=== PATIENT | male | born 1970 | race African-American/Black ===

== ENCOUNTER 2017-09-04 17:52 | Inpatient (IN) | payer OTHER ==
[~2017-09-04] VITALS: Ht 182.9 cm; Wt 91.2 kg
--- NOTE | 2017-09-04 17:52 | NUR ---
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 PLACED ON MONITOR. AWAITING MD ORDER
--- NOTE | 2017-09-04 18:20 | NUR ---
RT WRIST #18 IV ACCESS. BLOOD SAMPLE COLLECTED SENT TO LAB
[2017-09-04 18:38] LABS: CARBON DIOXIDE 29 mmol/L (21-32); CHLORIDE 105 mmol/L (98-107); CREATININE 1.3 mg/dL (0.6-1.3); GLUCOSE 141 mg/dL (74-106); SODIUM SERUM 140 mmol/L (136-145); UREA NITROGEN, BLOOD 25 mg/dL (7-18)
[2017-09-04 18:40] LABS: INR 0.91 (0.85-1.15)
[2017-09-04 18:47] LABS: BASOPHILS # (AUTO) 0.3 /CMM (0.0-0.2); BASOPHILS % (AUTO) 3.8 % (0.0-2.0); EOSINOPHILS % (AUTO) 2.1 % (0.0-6.0); HEMATOCRIT 40 % (39-51); HEMOGLOBIN 13.4 g/dL (13.5-17.5); LYMPHOCYTES # (AUTO) 2.1 /CMM (0.8-4.8); LYMPHOCYTES % (AUTO) 23.3 % (20.0-44.0); MEAN CORPUSCULAR HGB CONC 33 g/dl (31.0-36.0); MEAN CORPUSCULAR VOLUME 81 fL (80-96); MONOCYTES # (AUTO) 0.7 /CMM (0.1-1.30); MONOCYTES % (AUTO) 7.6 % (2.0-12.0); NEUTROPHILS # (AUTO) 5.7 /CMM (1.8-8.9); NEUTROPHILS % (AUTO) 63.2 % (43.0-81.0); PLATELET COUNT (AUTO) 266 /CMM (150-450); RDW COEFFICIENT OF VARIATION 13.7 (11.5-15.0); RED BLOOD CELL COUNT(AUTO) 4.97 MIL/uL (4.5-6.0)
[2017-09-04 19:01] LABS: TROPONIN I < 0.017 ng/mL (0.00-0.056)
--- NOTE | 2017-09-04 19:18 | NUR ---
GAVE REPORT TO LANDY FOR ABDULAZIZ
[2017-09-04] MEDS ORDERED: IV NS 0.9% 250 ML IV ONE (20:20)
[2017-09-04] MEDS ORDERED: IOHEXOL-350 100 ML VIAL IV ONE (20:20)
[2017-09-04] MEDS ORDERED: CT SWABBABLE VALVE TRANS SET 1 EA INFUS.SET MC ONE (20:20)
[2017-09-04] MEDS ORDERED: ASPIRIN 325 MG TABLET PO ONE (20:30)
[2017-09-04] MEDS ORDERED: IV NS 0.9% 1,000 ML BAG IV ONE (20:30)
[2017-09-04] MEDS ORDERED: ASPIRIN 325 MG TABLET ONE (21:21)
--- NOTE | 2017-09-04 21:50 | NUR ---
CALLED [employer] CART PUSHER WAS PAGED
--- NOTE | 2017-09-04 21:57 | NUR ---
REPORT GIVEN TO ITZ LERMA FOR ABDULAZIZ
--- NOTE | 2017-09-04 22:24 | NUR ---
TRANSPORTED PT TO TELE BED WITHOUT INCIDENT
[2017-09-04 22:25] VITALS: BP 134/74
--- NOTE | 2017-09-04 22:25 | NUR ---
ROTOR PILOTGENERAL CONTRACTOR NOTE PT ARRIVED VIA WHEELCHAIR IN STABLE CONDITION ACCOMPANIED BY ER STAFF. PT ABLE TO AMBULATE FROM WHEELCHAIR TO BED WITH NO DIFFICULTY. PT IS A/O X4, RESPIRATIONS ARE EVEN AND UNLABORED, NOT IN ANY ACUTE DISTRESS NOTED. PUPILS ARE REACTIVE TO LIGHT. BILATERAL HAND PHYSICIAN CREDENTIALING SPECIALIST ARE STRONG AND EQUAL. TELE LEADS APPLIED, NOTED TO BE SR 70 AT THIS TIME. DENIES SOB AT THIS TIME. PT STATED HE HAS SLIGHT CHEST PAIN TO STERNUM THAT IS DULL AND PERSISTENT, DOES NOT RADIATE. OFFERED PAIN MEDICATION, PT STATED "I AM FINE FOR NOW. I DONT NEED IT." PT MADE AWARE OF OPTIONS OF MEDICATIONS, PT VERBALIZED UNDERSTANDING. ABDOMEN IS SOFT AND NONDISTENDED. DENIES ANY BLADDER DISCOMFORT. NO SKIN ISSUES NOTED. IV TO RIGHT WRIST INTACT, NO INFILTRATION NOTED. DRESSING KEPT CLEAN AND DRY. SAFETY MEASURES ARE IN PLACE. BED IS IN ITS LOW AND LOCKED POSITION. INSTRUCTED PT TO USE CALL LIGHT WHEN ASSISTANCE IS NEEDED, CALL LIGHT IS LEFT WITHIN REACH. WILL CONTINUE TO MONITOR THROUGHOUT SHIFT.
[2017-09-04 22:30] VITALS: BP 134/74
[2017-09-04] MEDS ORDERED: MORPHINE SULFATE INJ 2 MG/ML DISP.SYRIN IV PRN (22:30)
[2017-09-04] MEDS ORDERED: MAGNESIUM HYDROXIDE 30 ML UDC PO PRN (22:30)
[2017-09-04] MEDS ORDERED: HYDROCODONE/APAP 5/325MG 1 EACH TABLET PO PRN (22:30)
[2017-09-04] MEDS ORDERED: ACETAMINOPHEN 325 MG TABLET PO PRN (22:30)
[2017-09-04] MEDS ORDERED: ZOLPIDEM TARTRATE 5 MG TABLET PO PRN (22:30)
[2017-09-04] MEDS ORDERED: MAG HYDROX/AL HYDROX/SIMETH 30 ML UDC PO PRN (22:30)
[2017-09-04] MEDS ORDERED: Z GUARD REMEDY 2 OZ OINT TP PRN (22:30)
[2017-09-04] MEDS ORDERED: ONDANSETRON HCL/PF 4 MG/2 ML VIAL IVP PRN (22:30)
[2017-09-04] MEDS ORDERED: ENOXAPARIN SODIUM 40 MG/0.4 ML DISP.SYRIN SQ ONE (23:00)
[2017-09-05 00:11] VITALS: BP 151/84
[2017-09-05 04:37] VITALS: BP 148/78
--- NOTE | 2017-09-05 06:20 | NUR ---
SENIOR INSIGHT MANAGER INTERNATIONAL CLOSING NOTE ALL DUE MEDS GIVEN, NEEDS MET AND RENDERED. ALERT, AWAKE AND RESPONSIVE. RESPIRATIONS ARE EVEN AND UNLABORED, NOT IN ANY ACUTE DISTRESS NOTED. DENIES ANY PAIN, SOB AT THIS TIME. IV SITE INTACT, NO INFILTRATION NOTED. DRESSING KEPT CLEAN AND DRY. SAFETY MEASURES ARE IN PLACE. REMINDED PT TO USE CALL LIGHT WHEN ASSISTANCE IS NEEDED, CALL LIGHT IS LEFT WITHIN REACH. WILL ENDORSE TO NEXT SHIFT FOR CONTINUITY OF CARE.
[2017-09-05 06:49] LABS: BASOPHILS % (AUTO) 0.5 % (0.0-2.0); EOSINOPHILS % (AUTO) 2.8 % (0.0-6.0); HEMATOCRIT 36 % (39-51); HEMOGLOBIN 12.3 g/dL (13.5-17.5); LYMPHOCYTES # (AUTO) 3.7 /CMM (0.8-4.8); LYMPHOCYTES % (AUTO) 43.8 % (20.0-44.0); MEAN CORPUSCULAR HGB CONC 34 g/dl (31.0-36.0); MEAN CORPUSCULAR VOLUME 81 fL (80-96); MONOCYTES # (AUTO) 0.7 /CMM (0.1-1.30); MONOCYTES % (AUTO) 7.7 % (2.0-12.0); NEUTROPHILS # (AUTO) 3.8 /CMM (1.8-8.9); NEUTROPHILS % (AUTO) 45.2 % (43.0-81.0); PLATELET COUNT (AUTO) 246 /CMM (150-450); RDW COEFFICIENT OF VARIATION 14.6 (11.5-15.0); RED BLOOD CELL COUNT(AUTO) 4.43 MIL/uL (4.5-6.0); WHITE BLOOD COUNT (AUTO) 8.4 K/uL (4.3-11.0)
[2017-09-05 07:11] LABS: TROPONIN I < 0.017 ng/mL (0.00-0.056)
[2017-09-05 07:13] LABS: CHOLESTEROL 136 mg/dL (<200); HDL CHOLESTEROL 44 mg/dL (40-60); LDL 76 mg/dL (0-99); TRIGLYCERIDES 73 mg/dL (30-150)
[2017-09-05 07:18] LABS: ALANINE AMINOTRANSFERASE 54 U/L (12-78); ALBUMIN 2.9 g/dL (3.4-5.0); ALKALINE PHOSPHATASE 43 U/L (46-116); ASPARTATE AMINOTRANSFERASE 153 U/L (15-37); BILIRUBIN,TOTAL 0.2 mg/dL (0.2-1.0); CALCIUM, SERUM 8.5 mg/dL (8.5-10.1); CARBON DIOXIDE 27 mmol/L (21-32); CHLORIDE 107 mmol/L (98-107); GLUCOSE 78 mg/dL (74-106); MAGNESIUM 1.8 mg/dL (1.8-2.4); PHOSPHORUS 4.2 mg/dL (2.5-4.9); POTASSIUM 3.6 mmol/L (3.5-5.1); SODIUM SERUM 141 mmol/L (136-145); TOTAL PROTEIN, SERUM 6.4 g/dL (6.4-8.2); UREA NITROGEN, BLOOD 21 mg/dL (7-18)
--- NOTE | 2017-09-05 07:46 | NUR ---
CUSTOMER SERVICE REPRESENTATIVE OPENING NOTES RECEIVED PT FROM NIGHTSHIFT NURSE INS TABLE CONDITION. PT IS A/O X4. NO SOB OR SIGNS OF DISTRESS NOTED. BREATHING IS EVEN AND UNLABORED. PT IS ON RA AND SATING WELL. HE CONTINUE TO COMPLAIN OF A DULL, NON RADIATING CHEST PAIN WHICH IS LOCALIZED TO HIS STERNUM. HE RATES IT A 4/10, BUT REFUSES PAIN MEDICATION AT THIS TIME. HE IS SINUS RHYTHM ON THE TELE MONITOR WITH A HR OF 76. IV TO RIGHT WRIST IS NOTED TO BE PATENT AND INTACT. NO REDNESS OR SIGNS OF INFILTRATION NOTED. BED IN LOW LOCKED POSITION, SIDE RAILS UP X2, CALL LIGHT WITHIN REACH. WILL CONTINUE TO MONITOR.
[2017-09-05 08:00] VITALS: BP 131/82
[2017-09-05] MEDS: CARVEDILOL 12.5 MG TABLET PO SCH ×2 (10:38→20:36)
[2017-09-05 16:00] VITALS: BP 148/83
[2017-09-05] MEDS: IV NS 0.9% 1,000 ML IV PRN (16:34)
--- NOTE | 2017-09-05 18:20 | NUR ---
MS RN CLOSING NOTES PT REMAINS STABLE. ALL NEEDS WERE MET DURING SHIFT AND ORDERS CARRIED OUT ACCORDINGLY. ALL DUE MEDS GIVE. HE DENIES PAIN AT THIS TIME. CONSENT SIGNED FOR CT ANGIOGRAM. PT REMINDED THAT HE IS TO REMAIN NPO POST MIDNIGHT AND VERBALIZED UNDERSTANDING. SAFETY MEASURES REMAIN IN PLACE. WILL ENDORSE TO NIGHTSHIFT NURSE FOR ABDULAZIZ
--- NOTE | 2017-09-05 18:30 | NUR ---
Patient lives alone, he is ambulatory and independent with adl's. Has no dc planning needs identified. Addendum: 09/05/17 at 1831 by WALESKA SNYDER RN Amended: Links added.
--- NOTE | 2017-09-05 19:15 | NUR ---
MS RN OPENING NOTE RECEIVED PATIENT IN BED, ALERT ORIENTED X4, ABLE TO COMMUNICATE NEEDS. ON ROOM AIR, TOLERATES WELL, DENIES SOB. PATIENT REMAINS WITH 4/10 LOCALIZED CHEST PAIN, NO RADIATION. REFUSES PAIN MEDICATION, REPORT RECEIVED THAT PATIENT HAS HAD THAT PAIN ALL THE TIME THROUGHOUT THE SHIFT, NO CHANGES IN VITAL SIGNS WERE NOTED, MD AWARE OF THE SITUATION. IN NO APPARENT DISTRESS OR DISCOMFORT AT THIS TIME. RESPIRATIONS EVEN AND UNLABORED. ABLE TO COMMUNICATE NEEDS, PATIENT AMBULATES WITH STEADY GAIT. RIGHT WRIST 18G IV WITH FLUIDS RUNNING AT 125 ML/HR, NO SIGN OF INFILTRATION. PATIENT KEPT CLEAN AND COMFORTABLE, ALL NEEDS ATTENDED, SAFETY MEASURES IN PLACE, BED IN LOW LOCKED POSITION, SIDE RAILS UP X2, CALL LIGHT WITHIN EASY REACH, WILL CONTINUE TO MONITOR.
[2017-09-05 20:00] VITALS: BP 145/80
[2017-09-05] MEDS: ENOXAPARIN SODIUM 40 MG/0.4 ML DISP.SYRIN SQ SCH (21:18)
[2017-09-06] MEDS: IV NS 0.9% 1,000 ML IV PRN ×2 (03:25→19:51)
--- NOTE | 2017-09-06 07:32 | NUR ---
MS RN OPENING NOTES RECEIVED PT FROM NIGHTSHIFT NURSE IN STABLE CONDITION. PT IS A/O X4. NO SOB OR SIGNS OF DISTRESS NOTED. BREATHING IS EVEN AND UNLABORED. HE CONTINUES TO COMPLAIN OF A DULL, NON RADIATING CHEST PAIN WHICH IS LOCALIZED TO HIS STERNUM. HE RATES IT A 4/10, BUT REFUSES PAIN MEDICATION AT THIS TIME. IV TO RIGHT WRIST AND LEFT AC ARE NOTED TO BE PATENT AND INTACT. NO REDNESS OR SIGNS OF INFILTRATION NOTED. NPO STATUS MAINTAINED SINCE MIDNIGHT FOR SCHEDULED CT ANGIOGRAM. BED IN LOW LOCKED POSITION, SIDE RAILS UP X2, CALL LIGHT WITHIN REACH. WILL CONTINUE TO MONITOR.
--- NOTE | 2017-09-06 07:36 | NUR ---
MS RN CLOSING NOTE PATIENT IN BED, SLEEPING COMFORTABLY. AROUSED EASILY WITH VERBAL STIMULI. ORIENTED X4, ON ROOM AIR TOLERATING WELL, IN NO APPARENT DISTRESS OR DISCOMFORT AT THIS TIME. RESPIRATIONS EVEN AND UNLABORED. PATIENT DENIES PAIN AND SOB AT THIS TIME. PATIENT KEPT ON NPO STATUS POST MIDNIGHT FOR UPCOMING CT ANGIO PROCEDURE. RIGHT WRIST 18G IV WITH 125ML/HR FLUIDS RUNNING, LEFT AC 18G SL, PATENT AND INTACT. PATIENT KEPT CLEAN AND COMFORTABLE, SAFETY MEASURES IN PLACE, BED IN LOW LOCKED POSITION, SIDE RAILS UP X2, CALL LIGHT WITHIN EASY REACH, WILL ENDORSE TO AM NURSE FOR ABDULAZIZ.
[2017-09-06 07:45] LABS: BASOPHILS # (AUTO) 0.1 /CMM (0.0-0.2); HEMATOCRIT 37 % (39-51); HEMOGLOBIN 12.8 g/dL (13.5-17.5); LYMPHOCYTES # (AUTO) 3.1 /CMM (0.8-4.8); MEAN CORPUSCULAR HGB CONC 35 g/dl (31.0-36.0); MEAN CORPUSCULAR VOLUME 81 fL (80-96); MONOCYTES # (AUTO) 0.4 /CMM (0.1-1.30); MONOCYTES % (AUTO) 6.2 % (2.0-12.0); NEUTROPHILS # (AUTO) 3.3 /CMM (1.8-8.9); NEUTROPHILS % (AUTO) 45.8 % (43.0-81.0); PLATELET COUNT (AUTO) 254 /CMM (150-450); RDW COEFFICIENT OF VARIATION 13.7 (11.5-15.0); RED BLOOD CELL COUNT(AUTO) 4.55 MIL/uL (4.5-6.0); WHITE BLOOD COUNT (AUTO) 7.1 K/uL (4.3-11.0)
[2017-09-06 08:00] VITALS: BP 134/93
[2017-09-06] MEDS: CARVEDILOL 12.5 MG TABLET PO SCH ×3 (08:16→21:36)
[2017-09-06 08:37] LABS: ALBUMIN 2.9 g/dL (3.4-5.0); BILIRUBIN,TOTAL 0.3 mg/dL (0.2-1.0); CALCIUM, SERUM 8.5 mg/dL (8.5-10.1); MAGNESIUM 1.7 mg/dL (1.8-2.4); PHOSPHORUS 3.9 mg/dL (2.5-4.9); POTASSIUM 3.7 mmol/L (3.5-5.1); TOTAL PROTEIN, SERUM 6.7 g/dL (6.4-8.2)
--- NOTE | 2017-09-06 09:39 | NUR ---
MS RN NOTES: CARVEDILOL ADMINISTRATION 12.5 [place] [address] IN PRE[address]ATION FOR PT'S CT ANGIOGRAM. DR CHAVIS ORDERED ANOTHER DOSE OF CARVEDILOL 25MG TO BE GIVEN NOW TO FURTHER PREPARE THE PT AND CHANGED THE PRECEDING DOSES TO CARVEDILOL 25MG BID. PT'S CURRENT BP IS 132/82 WITH A HR OF 65
[2017-09-06] MEDS ORDERED: METOPROLOL TARTRATE INJ 5 MG/5 ML AMPUL IVP SCH (09:49)
[2017-09-06] MEDS ORDERED: POTASSIUM CHLORIDE 20 MEQ TAB.PRT.SR PO SCH (10:00)
[2017-09-06] MEDS ORDERED: IOHEXOL-350 100 ML VIAL IV ONE (10:21)
[2017-09-06] MEDS ORDERED: NITROGLYCERIN 0.4 MG/TAB BOTTLE ONE (11:23)
--- NOTE | 2017-09-06 11:26 | NUR ---
MS RN NOTES PT TAKEN DOWN FOR CT ANGIOGRAM
--- NOTE | 2017-09-06 11:48 | NUR ---
MS RN NOTES PT BACK FROM CT IN STABLE CONDITION. CURRENT BP IS 128/63 WITH A HR OF 86. WILL AWAIT RESULTS
[2017-09-06] MEDS: Magnesium 1GM/D5W 100ML PREMIX 100 ML IV SCH ×2 (12:12→14:11)
[2017-09-06 16:00] VITALS: BP 130/80
--- NOTE | 2017-09-06 18:39 | NUR ---
MS RN CLOSING NOTES PT REMAINS STABLE. ALL NEEDS WERE MET DURING SHIFT AND ORDERS CARRIED OUT ACCORDINGLY. ALL DUE MEDS GIVEN. CT ANGIOGRAM RESULTED AND REVIEWED WITH DR CHAVIS. DR ACEVEDO ALSO MADE AWARE AND STATED THAT HE WILL D/C THE PT TOMORROW. SAFETY MEASURES REMAIN IN PLACE. WILL ENDORSE TO NIGHTSHIFT NURSE FOR ABDULAZIZ
--- NOTE | 2017-09-06 19:35 | NUR ---
MS RN OPENING NOTES RECEIVED PT IN BED ALERT, AWAKE, VERBALLY RESPONSIVE, ON ROOM AIR, NO APPARENT DISTRESS NOTED. DENIES ANY PAIN OR DISCOMFORT AT THIS TIME. IV SITE RT WRIST INTACT,PATENT. CALL LIGHT WITHIN REACH. ATTENDED ALL NEEDS. WILL CONTINUE TO MONITOR ACCORDINGLY.
[2017-09-06 20:00] VITALS: BP 143/85
[2017-09-06] MEDS: ENOXAPARIN SODIUM 40 MG/0.4 ML DISP.SYRIN SQ SCH (21:37)
[2017-09-06 22:00] VITALS: BP 142/82
[2017-09-07] MEDS: IV NS 0.9% 1,000 ML IV PRN (06:05)
--- NOTE | 2017-09-07 06:18 | NUR ---
MS RN CLOSING NOTES PT IN BED, RESTING COMFORTABLY, ON ROOM AIR, NO RESPIRATORY DISTRESS NOTED. IV SITE RT WRIST INTACT, PATENT. CALL LIGHT WITHIN REACH. KEPT CLEAN AND COMFORTABLE.ATTENDED ALL NEEDS. WILL ENDORSE TO DAY SHIFT FOR CONTINUITY OF CARE.
[2017-09-07 07:27] LABS: CALCIUM, SERUM 8.1 mg/dL (8.5-10.1); POTASSIUM 4.1 mmol/L (3.5-5.1)
--- NOTE | 2017-09-07 07:29 | NUR ---
MS RN OPENING NOTES RECEIVED PT IN BED AWAKE, A/O X4 IN NO ACUTE SIGNS OF DISTRESS. ABLE TO VERBALIZED NEEDS WITH NO C/O PAIN OR DISCOMFORTS AT THIS TIME. ON ROOM AIR, BREATHING IS EVEN AND UNLABORED. IV ACCESS ON RIGHT WRIST PATENT AND INTACT., IVF OF NS @ 125ML/HR INFUSING WELL. NO REDNESS OR SIGNS OF INFILTRATION NOTED. BED IN LOW/LOCKED POSITION WITH SIDE RAILS UP X2. CALL LIGHT WITHIN REACH. WILL CONTINUE TO MONITOR.
[2017-09-07 07:47] LABS: BASOPHILS % (AUTO) 0.4 % (0.0-2.0); EOSINOPHILS % (AUTO) 2.7 % (0.0-6.0); HEMATOCRIT 37 % (39-51); HEMOGLOBIN 12.8 g/dL (13.5-17.5); LYMPHOCYTES # (AUTO) 2.7 /CMM (0.8-4.8); MEAN CORPUSCULAR HGB CONC 34 g/dl (31.0-36.0); MEAN CORPUSCULAR VOLUME 80 fL (80-96); MONOCYTES # (AUTO) 0.6 /CMM (0.1-1.30); MONOCYTES % (AUTO) 8.7 % (2.0-12.0); NEUTROPHILS # (AUTO) 3.2 /CMM (1.8-8.9); NEUTROPHILS % (AUTO) 48.2 % (43.0-81.0); PLATELET COUNT (AUTO) 239 /CMM (150-450); RDW COEFFICIENT OF VARIATION 13.7 (11.5-15.0); RED BLOOD CELL COUNT(AUTO) 4.61 MIL/uL (4.5-6.0); WHITE BLOOD COUNT (AUTO) 6.7 K/uL (4.3-11.0)
[2017-09-07 08:00] VITALS: BP 131/79
[2017-09-07 08:07] VITALS: BP 131/79
[2017-09-07] MEDS: CARVEDILOL 12.5 MG TABLET PO SCH (08:07)
--- NOTE | 2017-09-07 14:33 | NUR ---
RN DISCHARGED NOTES PATIENT DISCHARGED HOME IN STABLE CONDITION. A/O X4. AMBULATORY AND VERBALLY RESPONSIVE WITH NO COMPLAINTS VOICED DURING DISCHARGE. V/S TAKEN AND RECORDED. SKIN IS INTACT. PT REFUSED PNA VACCINE. SMOKING CESSATION ENCOURAGED AND ALL OTHER HEALTH TEACHINGS GIVEN AND VERBALIZED UNDERSTANDING. PT LEFT UNIT AT 1420 AMBULATORY ACCOMPANIED BY ME TO THE LOBBY. HE'S FRIEND WILL ACCOMPANY HIM TO HIS HOME. MD AND CHARGE NURSE AWARE OF DISCHARGE.
== END 2017-09-07 14:30 | disposition home or self-care (01) | DRG 203 ==
LOC: ER 17:54 → TELE 22:03 → MED 09-05 10:49
PROVIDERS: ADMIT Internal Medicine; ATTEND Family Medicine
DX: M94.0 Chondrocostal junction syndrome [Tietze] (principal); N17.0 Acute kidney failure with tubular necrosis; E86.9 Volume depletion, unspecified; F17.200 Nicotine dependence, unspecified, uncomplicated; R73.9 Hyperglycemia, unspecified; F14.90 Cocaine use, unspecified, uncomplicated; E44.0 Moderate protein-calorie malnutrition
CPT/HCPCS: 36415; 71045-TC; 75574; 80048-TC; 80053-TC; 80061-TC; 83735-TC; 83880; 84100-TC; 84484-TC; 85025-TC; 85378-TC; 85730-TC; 87081-TC; 93307-TC; 93971-TC; A4606; J1650; J3475; J3490; J7030; J7050; Q9967; Z7610